=== PATIENT | male | born 1985 | race Hispanic/Latino ===

== ENCOUNTER 2020-07-17 10:59 | Inpatient (IN) | payer SELFPAY ==
[~2020-07-17] VITALS: Ht 170.2 cm; Wt 104.1 kg
[2020-07-17] VITALS (13 sets, daily range): BP systolic 112–146; BP diastolic 48–89
[2020-07-17] MEDS ORDERED: SODIUM CHLORIDE 0.9% 1000ML 1,000 ML IV STA ×4 (11:18→12:12)
[2020-07-17 11:23] LABS: BASOPHILS % 0.5 % (0.0-1.0); EOSINOPHILS # (AUTO) 0.1 (0.0-0.4); EOSINOPHILS % 0.8 % (0.0-6.0); HEMATOCRIT 47.8 % (38.2-49.6); HEMOGLOBIN 16.7 g/dL (14.0-18.0); LYMPHOCYTES # (AUTO) 2.5 (1.0-3.2); LYMPHOCYTES % 29.6 % (18.0-39.1); MEAN CORPUSCULAR HEMOGLOBIN 30.6 pg (28-32); MEAN CORPUSCULAR HGB CONC 34.9 g/dL (31-35); MEAN CORPUSCULAR VOLUME 87.7 fL (81-99); MONOCYTES # (AUTO) 0.5 (0.2-0.8); MONOCYTES % 5.5 % (4.4-11.3); NEUTROPHILS # (AUTO) 5.4 (2.1-6.9); NEUTROPHILS % 63.4 % (38.7-80.0); PLATELET COUNT 264 x10e3/uL (140-360); RED BLOOD COUNT 5.45 x10e6/uL (4.3-5.7); RED CELL DISTRIBUTION WIDTH 11.7 % (11.7-14.4)
[2020-07-17 11:44] LABS: ANION GAP 27.4 mmol/L (8-16); POTASSIUM 4.4 mmol/L (3.5-5.1)
[2020-07-17 11:45] LABS: ALBUMIN 4.5 g/dL (3.5-5.0); CREATININE, SERUM 1.86 mg/dL (0.72-1.25)
--- NOTE | 2020-07-17 11:50 | Diagnostic Imaging Report ---
X-ray chest frontal view History: Weakness Comparison: Findings: Central airways: Unremarkable Cardiac silhouette: Unremarkable Mediastinal silhouettes: Unremarkable Pleura: No pleural effusion, pneumothorax or thickening Diaphragms: Unremarkable Lungs: No focal lung disease Skeletal structures: Unremarkable Extrathoracic soft tissues: Unremarkable Impression: No acute cardiopulmonary disease Signed by: Hank Heath MD on 07/17/2020 11:46 AM
[2020-07-17 11:51] LABS: CREATINE KINASE MB 1.2 ng/mL (0-5.0)
[2020-07-17] MEDS ORDERED: MAGNESIUM SULF 1GRAM/DEXTROSE 100 ML IV PRN (12:15)
[2020-07-17] MEDS ORDERED: POTASSIUM CHLORIDE 20MEQ/100ML 200 ML IV PRN (12:15)
[2020-07-17] MEDS ORDERED: DEXTROSE 5%/0.45% SOD CHL 1,000 ML IV SCH (12:15)
[2020-07-17] MEDS: SODIUM CHLORIDE 0.9% 1000ML 1,000 ML IV SCH ×3 (12:15→20:15)
--- NOTE | 2020-07-17 12:39 | Emergency Department Note ---
History of Present Illnes History of Present Illness Chief Complaint: Genitourinary History of Present Illness This is a 35 year old male arrives to the ED with complaints of urination and thirst as well as weight loss. Chief Complaint Comment Patient in from home with complaints of frequent urination, increased thirst, decreased appetite and weakness over the last 3 weeks. Patient denies burning with urination. Reports a family history (mother) of diabetes. Patient denies history of diabetes but also does not have a family doctor. Patient's heart rate is 121 in triage. No acute distress noted. Historian: Patient Arrival Mode: Car Radiation: Reports non-radiation Severity: moderate Duration (how long): day(s) Timing of current episode: constant Progression: worsening Chronicity: new Relieving factors: none Exacerbating factors: none Past Medical/Family History Physician Review I have reviewed the patient's past medical and family history. Any updates have been documented here. Past Medical History Recent Fever: No Clinical Suspicion of Infectio: No New/Unexplained Change in Ment: No Past Medical History: None Past Surgical History: None Social History Smoking Cessation: Never Smoker Alcohol Use: Occasional Any Illegal Drug Use: No Physically hurt or threatened: No Other Last Tetanus: UTD Any Pre-Existing Lines (PICC,: No Physical Exam Related Data Allergies: Coded Allergies: No Known Allergies (Unverified , 09/28/18) Triage Vital Signs Vital Signs Date Time Temp Pulse Resp B/P (MAP) Pulse Ox O2 Delivery O2 Flow Rate FiO2 07/17/20 11:05 98.4 117 18 169/110 100 Room Air Vital signs reviewed: Yes Physical Exam CONSTITUTIONAL Constitutional: Present well-developed, Present obese HENT HENT: Present normocephalic, Present atraumatic, Present oropharynx clear/moist, Present nose normal HENT L/R: Present left ext ear normal, Present right ext ear normal EYES Eyes: Reports PERRL, Reports conjunctivae normal NECK Neck: Present ROM normal PULMONARY Pulmonary: Present effort normal, Present breath sounds normal CARDIOVASCULAR Cardiovascular: Present regular rhythm, Present heart sounds normal, Present capillary refill normal, Present normal rate GASTROINTESTINAL Abdominal: Present soft, Present nontender, Present bowel sounds normal GENITOURINARY Genitourinary: Present exam deferred SKIN Skin: Present warm, Present dry MUSCULOSKELETAL Musculoskeletal: Present ROM normal NEUROLOGICAL Neurological: Present alert, Present oriented x 3, Present no gross motor or sensory deficits PSYCHOLOGICAL Psychological: Present mood/affect normal, Present judgement normal Results Laboratory Result Diagram: 07/17/20 1110 07/17/20 1110 Laboratory Laboratory Tests Test 07/17/20 11:10 White Blood Count 8.44 x10e3/uL (4.8-10.8) Red Blood Count 5.45 x10e6/uL (4.3-5.7) Hemoglobin 16.7 g/dL (14.0-18.0) Hematocrit 47.8 % (38.2-49.6) Mean Corpuscular Volume 87.7 fL (81-99) Mean Corpuscular Hemoglobin 30.6 pg (28-32) Mean Corpuscular Hemoglobin Concent 34.9 g/dL (31-35) Red Cell Distribution Width 11.7 % (11.7-14.4) Platelet Count 264 x10e3/uL (140-360) Neutrophils (%) (Auto) 63.4 % (38.7-80.0) Lymphocytes (%) (Auto) 29.6 % (18.0-39.1) Monocytes (%) (Auto) 5.5 % (4.4-11.3) Eosinophils (%) (Auto) 0.8 % (0.0-6.0) Basophils (%) (Auto) 0.5 % (0.0-1.0) Neutrophils # (Auto) 5.4 (2.1-6.9) Lymphocytes # (Auto) 2.5 (1.0-3.2) Monocytes # (Auto) 0.5 (0.2-0.8) Eosinophils # (Auto) 0.1 (0.0-0.4) Basophils # (Auto) 0.0 (0.0-0.1) Absolute Immature Granulocyte (auto 0.02 x10e3/uL (0-0.1) Sodium Level 133 mmol/L (136-145) Potassium Level 4.4 mmol/L (3.5-5.1) Chloride Level 93 mmol/L (98-107) Carbon Dioxide Level 17 mmol/L (22-29) Anion Gap 27.4 mmol/L (8-16) Blood Urea Nitrogen 19 mg/dL (7-26) Creatinine 1.86 mg/dL (0.72-1.25) Estimat Glomerular Filtration Rate 42 ML/MIN (60-) BUN/Creatinine Ratio 10 (6-25) Glucose Level 770 mg/dL (74-118) Calcium Level 10.0 mg/dL (8.4-10.2) Total Bilirubin 0.7 mg/dL (0.2-1.2) Aspartate Amino Transf (AST/SGOT) 66 IU/L (5-34) Alanine Aminotransferase (ALT/SGPT) 113 IU/L (0-55) Alkaline Phosphatase 85 IU/L (40-150) Creatine Kinase 126 IU/L (30-200) Creatine Kinase MB 1.20 ng/mL (0-5.0) Troponin I 0.022 ng/mL (0-0.300) Total Protein 9.1 g/dL (6.5-8.1) Albumin 4.5 g/dL (3.5-5.0) Globulin 4.6 g/dL (2.3-3.5) Albumin/Globulin Ratio 1.0 (0.8-2.0) Lab results reviewed: Yes Imaging Imaging results reviewed: Yes Critical Care Time Total Critical Care Time (min): 75 Critical care time exclusive o: separately billable procedures Critcal care necessary due to: endocrine crisis Critcal care time spent by me: blood dram for specimens, discussion w consultants, discussion w primary provider, interpret cardiac output measures, evaluation patient response to tx, examination of patient, order/perform tx or interventions, order/review laboratory studies, order/review radiographic studies, re-evaluation of patient condition, vascular access procedures Comments Patient DKA, required every hourly capillary blood glucose, Assessment & Plan Medical Decision Making MDM 35-year-old male a known diabetic arrived to the ED with high blood sugar and generalized malaise since weakness. Patient's capillary blood glucose is greater than 700. Patient required aggressive fluid resuscitation and initiation of insulin drip. Patient admitted to the ICU for tighter control monitoring. Assessment & Plan Final Impression: (1) DKA (diabetic ketoacidoses) Depart Disposition: ADMITTED Last Vital Signs Date Time Temp Pulse Resp B/P (MAP) Pulse Ox O2 Delivery O2 Flow Rate FiO2 07/17/20 12:23 77 16 132/87 100 07/17/20 11:05 98.4 Room Air Medications in the ED Sodium Chloride 1,000 ml @ 0 mls/hr Q0M STAT IV Last administered on 07/17/20at 11:22; Admin Dose 1,000 MLS/HR; Start 07/17/20 at 11:18; Stop 07/17/20 at 11:19; Status DC Sodium Chloride 1,000 ml @ 0 mls/hr Q0M STAT IV Last administered on 07/17/20at 11:22; Admin Dose 1,000 MLS/HR; Start 07/17/20 at 11:18; Stop 07/17/20 at 11:39; Status DC Sodium Chloride 1,000 ml @ 250 mls/hr Q4H IV ; Start 07/17/20 at 12:15; Stop 08/16/20 at 12:14 Insulin Human Regular 100 unit/ Sodium Chloride 100 ml @ 10 mls/hr Q10H IV Last administered on 07/17/20at 12:35; Admin Dose 10 MLS/HR; Start 07/17/20 at 13:00; Stop 08/16/20 at 12:59 Dextrose/Sodium Chloride 1,000 ml @ 100 mls/hr Q10H IV ; Start 07/17/20 at 12:15; Stop 08/16/20 at 12:14 Potassium Chloride 200 ml @ 100 mls/hr ONCE PRN IV FOR K+ 3.0 OR LESS; Start 07/17/20 at 12:15; Stop 08/16/20 at 12:14 Magnesium Sulfate/ Dextrose 100 ml @ 100 mls/hr ONCE PRN IV IF MAG LEVEL IS LESS THAN 1.8; Start 07/17/20 at 12:15; Stop 07/24/20 at 12:14 Sodium Chloride 1,000 ml @ 0 mls/hr Q0M STAT IV Last administered on 07/17/20at 12:34; Admin Dose 1,000 MLS/HR; Start 07/17/20 at 12:12; Stop 07/17/20 at 12:29; Status DC Sodium Chloride 1,000 ml @ 0 mls/hr Q0M STAT IV Last administered on 07/17/20at 12:34; Admin Dose 1,000 MLS/HR; Start 07/17/20 at 12:12; Stop 07/17/20 at 12:29; Status DC ROSENDO HIGUERA, Jul 17, 2020 12:44
[2020-07-17 13:00] LABS: BILIRUBIN,URINE NEGATIVE (NEGATIVE); CLARITY,URINE CLEAR (CLEAR); COLOR,URINE YELLOW (YELLOW); KETONES,URINE 2+ (NEGATIVE); LEUKOCYTE ESTERASE ,URINE NEGATIVE (NEGATIVE); NITRITE,URINE NEGATIVE (NEGATIVE); PROTEIN,URINE DIPSTICK NEGATIVE (NEGATIVE); URINE UROBILINOGEN 0.2 mg/dL (0.2 - 1)
[2020-07-17] MEDS ORDERED: INSULIN REGULAR, HUMAN 3ML VL 100 UNIT in SODIUM CHLORIDE 0.9% 99 ML IV SCH ×2 (13:00)
[2020-07-17 13:14] LABS: EPITHELIAL CELLS,URINE RARE /LPF; MUCUS,URINE FEW (RARE); RBC,URINE 0-5 /HPF (0-5); WBC,URINE (MAN) 0-5 /HPF (0-5)
[2020-07-17 13:42] LABS: ANION GAP 21.4 mmol/L (8-16); CALCIUM 8.1 mg/dL (8.4-10.2); CREATININE, SERUM 1.4 mg/dL (0.72-1.25); MAGNESIUM 1.7 MG/DL (1.3-2.1); POTASSIUM 4.4 mmol/L (3.5-5.1)
[2020-07-17] MEDS ORDERED: INSULIN REGULAR, HUMAN 3ML VL 100 UNIT in SODIUM CHLORIDE 0.9% 100 ML IV SCH ×2 (14:30)
[2020-07-17] MEDS ORDERED: DEXTROSE 50% SYRINGE 50 ML IV PRN ×2 (14:30)
[2020-07-17] MEDS ORDERED: INSULIN REGULAR, HUMAN 3ML VL 300 UNIT in SODIUM CHLORIDE 0.45% 100 ML 300 ML IV SCH ×2 (14:30)
[2020-07-17 14:36] LABS: CHOL/HDL RATIO 6.3 (3.9-4.7); CHOLESTEROL 241 MD/DL (0-199); HDL CHOLESTEROL 38 MG/DL (40-60); TRIGLYCERIDES 466 MG/DL (0-149)
--- NOTE | 2020-07-17 14:52 | Consultation ---
DATE OF CONSULTATION: 07/17/2020 Endocrine Consultation The patient of Dr. Grnada. Thank you very much for referring this patient. HISTORY OF PRESENT ILLNESS: This is a 35-year-old gentleman who was referred to me for evaluation of new onset diabetes mellitus and diabetic ketoacidosis. The patient has been complaining of dryness of mouth, significant weight loss, and he checked his blood sugar at home, it was significantly elevated. He came to the emergency room. His blood sugar was about 500 and anion gap was 27.4. The patient does have family history of diabetes mellitus. No history of any other major medical problems in the past. PHYSICAL EXAMINATION: GENERAL: Today, the patient is alert, awake, little bit apprehensive. He is moderately overweight. VITAL SIGNS: Heart rate is around 78, blood pressure is 130/80 mmHg. HEENT: Essentially unremarkable. Thyroid is palpable. Clinically, he is near euthyroid. CHEST: Bilateral vesicular breathing. No rales heard. CARDIOVASCULAR: First and second heart sounds. There is no third or fourth heart sound. Ejection systolic murmur of grade 2/6. 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 CLINICAL IMPRESSION: 1. Diabetes mellitus, probably type 2, uncontrolled with complication. 2. Diabetic ketoacidosis. 3. Mild hypertension. PLAN: At this time is to continue insulin drip, start him on the Lantus at bedtime and monitor his blood sugars. The patient needs extensive diabetic and dietary education. Thanks for this patient. I will be following this patient with you. MD SUSANA Mcleod/CLIFF /[id number]
[2020-07-17] MEDS ORDERED: DEXTROSE 5%/0.45% SOD CHL 1,000 ML IV ONE (14:54)
[2020-07-17 14:56] LABS: FREE T4 (FREE THYROXINE) 1.25 ng/dL (0.8-1.8); THYROID STIMULATING HORMONE 1.108 uIU/mL (0.350-4.940)
[2020-07-17] MEDS: DEXTROSE 5%/0.45% SOD CHL 1,000 ML IV SCH (15:00)
[2020-07-17 17:30] LABS: ANION GAP 17.7 mmol/L (8-16); BLOOD UREA NITROGEN 13 mg/dL (7-26); BUN/CREATININE RATIO 11 (6-25); CALCIUM 8.3 mg/dL (8.4-10.2); CARBON DIOXIDE 18 mmol/L (22-29); CHLORIDE 107 mmol/L (98-107); CREATININE, SERUM 1.23 mg/dL (0.72-1.25); EST GLOMERULAR FILTRATION RATE > 60 ML/MIN (60-); GLUCOSE 300 mg/dL (74-118); MAGNESIUM 1.9 MG/DL (1.3-2.1); POTASSIUM 3.7 mmol/L (3.5-5.1); SODIUM 139 mmol/L (136-145)
[2020-07-17 20:40] LABS: ANION GAP 15.8 mmol/L (8-16); BLOOD UREA NITROGEN 13 mg/dL (7-26); BUN/CREATININE RATIO 11 (6-25); CALCIUM 8.3 mg/dL (8.4-10.2); CARBON DIOXIDE 20 mmol/L (22-29); CHLORIDE 105 mmol/L (98-107); EST GLOMERULAR FILTRATION RATE > 60 ML/MIN (60-); GLUCOSE 366 mg/dL (74-118); MAGNESIUM 1.8 MG/DL (1.3-2.1); POTASSIUM 3.8 mmol/L (3.5-5.1); SODIUM 137 mmol/L (136-145)
[2020-07-17] MEDS ORDERED: INSULIN GLARGINE 100 UNITS/ML VIAL SQ SCH (21:00)
[2020-07-18] VITALS (18 sets, daily range): BP systolic 101–147; BP diastolic 64–95
[2020-07-18] MEDS: SODIUM CHLORIDE 0.9% 1000ML 1,000 ML IV SCH ×3 (00:15→08:09)
[2020-07-18 00:25] LABS: ANION GAP 11.6 mmol/L (8-16); BLOOD UREA NITROGEN 11 mg/dL (7-26); BUN/CREATININE RATIO 10 (6-25); CALCIUM 8.2 mg/dL (8.4-10.2); CARBON DIOXIDE 23 mmol/L (22-29); CHLORIDE 106 mmol/L (98-107); CREATININE, SERUM 1.11 mg/dL (0.72-1.25); EST GLOMERULAR FILTRATION RATE > 60 ML/MIN (60-); GLUCOSE 293 mg/dL (74-118); MAGNESIUM 1.8 MG/DL (1.3-2.1); POTASSIUM 3.6 mmol/L (3.5-5.1); SODIUM 137 mmol/L (136-145)
[2020-07-18] MEDS: DEXTROSE 5%/0.45% SOD CHL 1,000 ML IV SCH ×2 (00:30→15:34)
[2020-07-18 05:31] LABS: ANION GAP 10.4 mmol/L (8-16); BLOOD UREA NITROGEN 11 mg/dL (7-26); BUN/CREATININE RATIO 10 (6-25); CALCIUM 8.4 mg/dL (8.4-10.2); CARBON DIOXIDE 23 mmol/L (22-29); CHLORIDE 107 mmol/L (98-107); CHOL/HDL RATIO 6.1 (3.9-4.7); CHOLESTEROL 171 MD/DL (0-199); CREATININE, SERUM 1.07 mg/dL (0.72-1.25); EST GLOMERULAR FILTRATION RATE > 60 ML/MIN (60-); GLUCOSE 236 mg/dL (74-118); HDL CHOLESTEROL 28 MG/DL (40-60); LDL CHOLESTEROL 103 MG/DL (60-130); MAGNESIUM 1.9 MG/DL (1.3-2.1); POTASSIUM 3.4 mmol/L (3.5-5.1); SODIUM 137 mmol/L (136-145); TRIGLYCERIDES 200 MG/DL (0-149)
[2020-07-18] MEDS ORDERED: POTASSIUM CHLORIDE 20 MEQ TAB CR PO STA (11:28)
--- NOTE | 2020-07-18 11:42 | NUR ---
Nutrition Screen Note RD Recommendation for Physician: Continue diet as ordered Plan of Care: RD following, monitoring for tolerance and adequacy Nutrition reason for involvement: Nutrition Risk Trigger, MST, New onset DM Primary Diagnose(s):DKA Ht:67 in Wt:228lb BMI:35.7 kg/m2 IBW:148lb RD Assessment:(07/18/2020) Initial encounter with patient. Pt denies any known food allergies. Pt with a good appetite TABLE ATTENDANT. Reports wt loss likely due to DKA. New onset DM(T2DM). Pt denies any nausea, vomiting, or diarrhea. Pt denies any difficulty chewing or swallowing. Pt educated on DM and given handouts Current Diet: 1999 ADA Malnutrition Evaluation (07/18/2020) The patient does not meet criteria for a specified degree of malnutrition at this time. Will re-evaluate at follow-up as appropriate. Diet Education Needs Assessment: Diet education indicated, Nutrition Education Learner(s): pt Time spent: 45min Barriers: No barriers identified. Cultural/Language Modifications: No cultural/language modifications noted. Pt speaks Hebrew. Readiness: Pt eager to learn. Method:verbal, handouts Provided , Diabetes Education and Nutrition Clinic Physician Referral Order form Topics: Carbohydrate exchanges, Carbohydrate counting handouts, Reading the nutrition label, meal planning tips, exercise tips, servings/portion sizes, S/S of hypo & hyperglycemia Understanding/Compliance: Expect good understanding/compliance from pt. Will benefit from reinforcement. All Diet Adequacy: Meeting calorie needs, Meeting protein needs, Meeting fluid needs. Tolerance: Tolerating PO Nutrition Care Level: Kee Good RD,LD,CNSC
[2020-07-18] MEDS ORDERED: INSULIN REGULAR, HUMAN 3ML VL 100 UNIT in SODIUM CHLORIDE 0.9% 100 ML 99 ML IV SCH ×2 (17:45)
[2020-07-18] MEDS: INSULIN LISPRO 100 UNIT/1 ML 3ML VIAL SQ SCH ×3 (17:56→21:03)
[2020-07-18] MEDS: SODIUM CHLORIDE 0.45% 1,000 ML IV SCH (18:05)
--- NOTE | 2020-07-18 19:00 | NUR ---
Report received. Assumed care. Assessment done. See interventions. Insulin drip decreased to 2 units/hr per orders.
[2020-07-18] MEDS ORDERED: INSULIN LISPRO 100 UNIT/1 ML 3ML VIAL SQ SCH (21:00)
[2020-07-18] MEDS ORDERED: INSULIN GLARGINE 100 UNITS/ML VIAL SQ SCH (21:00)
--- NOTE | 2020-07-18 21:00 | NUR ---
Decreased Insulin to 1 unit/hr.
[2020-07-19] VITALS (8 sets, daily range): BP systolic 124–150; BP diastolic 68–99
[2020-07-19] MEDS: SODIUM CHLORIDE 0.45% 1,000 ML IV SCH (04:43)
[2020-07-19 07:02] LABS: ANION GAP 14.5 mmol/L (8-16); BLOOD UREA NITROGEN 9 mg/dL (7-26); BUN/CREATININE RATIO 11 (6-25); CALCIUM 8.9 mg/dL (8.4-10.2); CARBON DIOXIDE 19 mmol/L (22-29); CHLORIDE 108 mmol/L (98-107); CREATININE, SERUM 0.82 mg/dL (0.72-1.25); EST GLOMERULAR FILTRATION RATE > 60 ML/MIN (60-); GLUCOSE 89 mg/dL (74-118); POTASSIUM 3.5 mmol/L (3.5-5.1); SODIUM 138 mmol/L (136-145)
[2020-07-19] MEDS: INSULIN LISPRO 100 UNIT/1 ML 3ML VIAL SQ SCH ×7 (07:30→21:30)
--- NOTE | 2020-07-19 15:06 | NUR ---
pt arrived to room 104; ambulating with ease. no s/s distress. pt has no complaints at this time; in stable condition. will continue to monitor.
[2020-07-19] MEDS ORDERED: INSULIN GLARGINE 100 UNITS/ML VIAL SQ SCH (21:00)
[2020-07-20] VITALS: BP 132/86
[2020-07-20 04:00] VITALS: BP 143/86
--- NOTE | 2020-07-20 08:11 | NUR ---
patient educated to basics of diabetes. had patient draw and administer his first shot of insulin. he was very interactive and asked many questions that were answered as well as possible. he seems to be a quick and smart individual with no learning barriers.
[2020-07-20 08:28] VITALS: BP 148/79
[2020-07-20 08:36] VITALS: BP 148/79
--- NOTE | 2020-07-20 09:02 | NUR ---
GAVE PACKET OF INFORMATION WITH COMM[facility]ITY [employer] FOR ASSISTANCE WITH LOW TO NO INCOME TO PATIENT. RESOURCES THAT PATIENT MAY BE ABLE TO FOLLOW UP UPON DISCHARGE. PT EDUCATED ON EACH RESOURCE AND UNDERSTANDING HOW TO FOLLOW UP TO SEE IF QUALIFIED FOR EACH RESOURCE.
[2020-07-20] MEDS: INSULIN LISPRO 100 UNIT/1 ML 3ML VIAL SQ SCH ×6 (09:04→12:50)
--- NOTE | 2020-07-20 11:35 | NUR ---
SHEILA received consult. RD had seen pt on 07/18 and diet education was provided. Please refer to Nutrition Note on 07/18. Will continue to monitor. Addendum: 07/20/20 at 1339 by Mini Acosta DIET Pt did not have any follow-up questions regarding diabetic diet at time of visit today.
--- NOTE | 2020-07-20 12:05 | Discharge Summary ---
ANESTHESIOLOGIST PHYSICIAN: Dr. Tanner Locke. FINAL DIAGNOSES: 1. The patient under investigation, negative for coronavirus disease-2019 viral infection. 2. Diabetic ketoacidosis with glycohemoglobin A1c of 15.6. HOSPITAL COURSE: The patient is a 35-year-old male, presented to the emergency room not feeling well. The patient has increase in diuresis, frequent urination and generalized weakness. The patient was found to have DKA. His glycohemoglobin A1c was 11.6. The patient admitted to ICU for insulin drip protocol. His COVID-19 test was subsequently negative. The patient was stable. No fever. No short of breath. The patient's frequent urination improved. He was generally weak. He is doing much better. He is off the insulin drip and out of the medical floor. No complication overall. The patient is stable. The patient's glycohemoglobin A1c was 11.6. Dr. Tanner Locke placed the patient on four shot of insulin a day. The patient does not have financial funding for insulin Humalog and Lantus. He will be taking 70/30 discussed with patient injection of twice a day instead of four times a day. The patient will need to follow up with [facility] for further medical adjustment of his medication. I am asking group social worker and continuous pillowcase cutter to assist the patient to get help. In the meantime when he is going home today he will take the following medication. Humulin 70/30 30 units a.m. and 40 units p.m. both before meals. He gets insulin needles and syringes. Glucometer test strips and lancets was also given as well. The patient will see a dietitian prior to his discharge in today. The patient to follow up as instructed. Activity as tolerated. ADA diet with dietitian recommendation. Follow up as instructed. MD ALDO Weinberg/MODL /[id number]
[2020-07-20 12:26] VITALS: BP 141/86
[2020-07-20] MEDS ORDERED: NOVOLIN 70100 UNIT/3 SQ (14:21)
== END 2020-07-20 15:09 | disposition home or self-care (01) | DRG 639 ==
LOC: ER 11:15 → ERHOLD 12:12 → ICU 14:00 → IMCU 07-18 18:56 → MED/SURG 07-19 15:08
PROVIDERS: ADMIT Internal Medicine; ATTEND Internal Medicine
DX: E11.10 Type 2 diabetes mellitus with ketoacidosis without coma (principal); Z79.4 Long term (current) use of insulin; Z11.59 Encounter for screening for other viral diseases; I10 Essential (primary) hypertension; E11.40 Type 2 diabetes mellitus with diabetic neuropathy, unspecified; Z59.9 Problem related to housing and economic circumstances, unspecified
CPT/HCPCS: 36415; 71045; 80048; 80053; 80061; 81001; 82550; 82553; 82948; 83036; 83735; 84439; 84443; 84484; 85025; 96372; 99284; J1815; J1817; J7030; J7050